=== PATIENT | female | born 1965 | race Caucasian/White ===

== ENCOUNTER → 2017-04-04 | Outpatient (CLI) | payer BC, OTHER ==
[2017-04-04 12:57] LABS: Potassium 4.7 mmol/L (3.5-5.1)
== END | disposition home or self-care (01) ==
LOC: LABPAT 12:07
PROVIDERS: ATTEND Surgery
DX: Z01.812 Encounter for preprocedural laboratory examination (principal)
CPT/HCPCS: 80051; 86850; 86900; 86901

== ENCOUNTER → 2017-04-07 | Day surgery (SDC) | payer BC, OTHER ==
[2017-04-01 10:44] VITALS: BMI 34.2
[~2017-04-07] MED LIST: BUPIVACAINE (PF) 0.5% 30 ML VIAL SQ ONE; DEXAMETHASONE SOD PHOSPHATE 10 MG/ML 1 ML VIAL IV ONE; GLYCOPYRROLATE 0.2 MG/ML 2 ML VIAL ONE; HEPARIN SODIUM,PORCINE 5,000 UNIT/ML 1 ML VIAL SQ ONE; HYDROcodone/APAP 7.5-325MG 1 EACH TAB PO ONE; LACTATED RINGERS 1,000 ML IV ONE; LACTATED RINGERS 1,000 ML IV SCH; LIDOCAINE 1% 20 ML VIAL (10MG/ML) FOR IV START INTRADERMA ONE; LIDOCAINE 1% INJ 10MG/ML (20 ML MDV) ONE; MIDAZOLAM 2 MG/2 ML VIAL IV PRN; MIDAZOLAM 2 MG/2 ML VIAL ONE; NEOSTIGMINE 1 MG/ML 10 ML VIAL ONE; ONDANSETRON 4 MG/2 ML VIAL IVP ONE; PROPOFOL 10 MG/ML 20 ML VIAL IV ONE; ROCURONIUM BROMIDE 10 MG/ML 10 ML VIAL IV ONE; SUCCINYLCHOLINE CHLORIDE 100 MG/5 ML SYR IV ONE; ceFAZolin 2 GM in SODIUM CHLORIDE 0.9% 100 ML IVPB ONE; fentaNYL (PF) 50 MCG/ML 2 ML AMP ONE
--- NOTE | 2017-04-07 11:16 | P.OP ---
Date of Procedure: 04/07/17 Preoperative Diagnosis: Ventral incisional hernia Postoperative Diagnosis: Ventral incisional hernia Procedure(s) Performed: Robotic-assisted ventral incisional hernia repair Implants: Anesthesia: BALDEMAR Surgeon: Preston Uriarte Estimated Blood Loss (ml): 1 Pathology: none sent Condition: stable Disposition: same day Indications for Procedure: Symptomatic ventral incisional hernia. Patient has had the previously radical hysterectomy and no dissection. Midline incision. Has developed a bulge at the upper end of the scar. No evidence of forearm generalized weakness of abdominal musculature. However the hernia is quite symptomatic. Did do and informed consent was obtained procedure having been explained to her including potential complication particular bleeding infection hematoma seroma recurrence pain etc. she understood and agree to proceed. Operative Findings: Ventral incisional hernia with a defect about the 20 cm in diameter. Description of Procedure: After induction of general endotracheal anesthesia the abdominal wall was prepped with Betadine and draped. A 5 mm trocar was inserted using the Optiview Method under direct vision into the peritoneal cavity in the left upper quadrant under local anesthesia. The peritoneal cavity was then inflated with carbon dioxide to pressure approximately 15 mmHg. A 12 mm trocar was placed more laterally and the 8 mm trocar inferiorly all under direct vision robot was then docked. The mesh was then inserted in the lateral port and the Prolene sutures and the attachments on either side. The defect was then closed with the running 0 Prolene locking suture. Mesh were then secured with a Prolene suture to the peritoneum. Hemostasis was good. The gauze were then removed under direct vision. CO2 evacuated. The 12 mm incision was the closed prior to removal of the trochars with the Homero Serrato needle suture. Skin incisions were closed with interrupted 4-0 Monocryl and Dermabond. There is no evidence of any other hernia defect at the time of visual exploration. The patient would discharged home to resume her home meds. [place] 7.5 one every 4-6 hours when necessary for pain. return appointment to the office in about a week. No heavy lifting or straining for 6 weeks. Soft diet. Encouraged to ambulate. Remove dressings tomorrow morning. May shower from tomorrow. Plan - Discharge Summary New Discharge Prescriptions: No Action Cholecalciferol [Vitamin D3] 5,000 unit PO DAILY Multivitamins, Thera [Multivitamin (formulary)] 1 tab PO DAILY Magnesium Malate 1 tab PO BID Ibuprofen [Motrin] 800 mg PO Q8H PRN PRN Reason: Pain Cyclobenzaprine [Flexeril] 10 mg PO HS Venlafaxine HCl [Effexor] 37.5 mg PO HS Metoprolol Tartrate [Lopressor] 12.5 mg PO BID Discharge Medication List Cholecalciferol [Vitamin D3] 5,000 unit PO DAILY 01/29/16 [History] Magnesium Malate 1 tab PO BID 01/29/16 [History] Multivitamins, Thera [Multivitamin (formulary)] 1 tab PO DAILY 01/29/16 [History ] Cyclobenzaprine [Flexeril] 10 mg PO HS 08/07/16 [History] Ibuprofen [Motrin] 800 mg PO Q8H PRN 08/07/16 [History] Metoprolol Tartrate [Lopressor] 12.5 mg PO BID 04/01/17 [History] Venlafaxine HCl [Effexor] 37.5 mg PO HS 04/01/17 [History] Follow up Appointment(s)/Referral(s): Preston Uriarte MD [STAFF PHYSICIAN] - 04/15/17 9:00 am Patient Instructions/Handouts: *Surgery [facility] - (Anesthesia) Discharge Instructions Outpatient Surgery, Ventral Hernia (DC), Ventral Hernia Repair (DC)
[2017-04-07 11:21] VITALS: TEMP 97.8
[2017-04-07] MEDS: HYDROmorphone 1 MG/ML 1 ML SYRINGE IVP PRN ×5 (11:42→12:19)
[2017-04-07 13:05] VITALS: RESP 16
[2017-04-07 14:10] VITALS: BP 131/65; PULSE 77
== END ==
LOC: OR 07:55
PROVIDERS: ATTEND Surgery
DX: K43.2 Incisional hernia without obstruction or gangrene (principal); M79.7 Fibromyalgia; M19.049 Primary osteoarthritis, unspecified hand; E78.5 Hyperlipidemia, unspecified; I10 Essential (primary) hypertension; F32.9 Major depressive disorder, single episode, unspecified; E66.9 Obesity, unspecified; Z79.899 Other long term (current) drug therapy; Z88.2 Allergy status to sulfonamides
CPT/HCPCS: 49654; S2900; 86850; 86900; 86901

== ENCOUNTER → 2017-07-01 | Outpatient (CLI) | payer BC, OTHER ==
--- NOTE | 2017-07-01 08:18 | US ---
EXAMINATION TYPE: US abdomen complete DATE OF EXAM: 07/01/2017 COMPARISON: CT CLINICAL HISTORY: R19.07 Abd/Pelvic Swelling Mass. Patient complains of lump near umbilicus. EXAM MEASUREMENTS: Liver Length: 12.9 cm Gallbladder Wall: 0.3 cm CBD: 0.5 cm Spleen: 12.4 cm Right Kidney: 10.6 x 4.0 x 4.4 cm Left Kidney: 10.7 x 4.4 x 6.1 cm Pancreas: visualized portions wnl Liver: wnl Gallbladder: No stones seen Evidence for sonographic Garcia's sign: No CBD: wnl Spleen: wnl Right Kidney: No hydronephrosis or masses seen Left Kidney: No hydronephrosis or masses seen, lower pole partially obscured by bowel Upper IVC: wnl Abd Aorta: wnl Scanned around umbilicus where pt feels lump, no definite abnormality noted, no hernia seen with willie harkins. IMPRESSION: 1. No suspicious anterior abdominal wall hernia identified. 2. Normal abdomen ultrasound
== END | disposition home or self-care (01) ==
LOC: RADUSWWP 07:36
PROVIDERS: ATTEND Family Medicine
DX: R19.07 Generalized intra-abdominal and pelvic swelling, mass and lump (principal)
CPT/HCPCS: 76700

== ENCOUNTER → 2018-01-28 | Outpatient (CLI) | payer BC, OTHER ==
[2018-01-28 12:15] LABS: ALT 17 U/L (9-52); AST 20 U/L (14-36); Albumin 4.5 g/dL (3.5-5.0); Alkaline Phosphatase 119 U/L (38-126); Anion Gap 13 mmol/L; Blood Urea Nitrogen 16 mg/dL (7-17); C Reactive Protein <5.0 mg/L (<10.0); Calcium 9.7 mg/dL (8.4-10.2); Carbon Dioxide 28 mmol/L (22-30); Chloride 105 mmol/L (98-107); Cholesterol 291 mg/dL (<200); Glucose 101 mg/dL (74-99); HDL Cholesterol 44 mg/dL (40-60); LDL Cholesterol,Calculated 205 mg/dL (0-99); Potassium 4.9 mmol/L (3.5-5.1); Sodium 146 mmol/L (137-145); Total Bilirubin 0.4 mg/dL (0.2-1.3); Total Protein 7.7 g/dL (6.3-8.2); Triglycerides 208 mg/dL (<150)
[2018-01-28 12:25] LABS: T4, Free (Free Thyroxine) 0.89 ng/dL (0.78-2.19)
[2018-01-28 16:22] LABS: Rheumatoid Factor 7 IU/mL (0-15)
[2018-01-28 16:30] LABS: Vitamin D 25 Hydroxy 26.2 ng/mL (30.0-100.0)
== END | disposition home or self-care (01) ==
LOC: LABWHC1 09:59
PROVIDERS: ATTEND Nurse Practitioner Family
DX: E78.2 Mixed hyperlipidemia (principal); E55.9 Vitamin D deficiency, unspecified; R03.0 Elevated blood-pressure reading, without diagnosis of hypertension; M79.7 Fibromyalgia
CPT/HCPCS: 36415; 80053; 80061; 82306; 82533; 84439; 84443; 85652; 86038; 86140; 86431

== ENCOUNTER → 2019-04-22 | Outpatient (CLI) | payer OTHER ==
--- NOTE | 2019-04-23 10:55 | MM ---
Reason for exam: screening (asymptomatic). History: Patient is postmenopausal. Family history of breast cancer in aunt at age 60. Physical Findings: A clinical breast exam by your physician is recommended on an annual basis and results should be correlated with mammographic findings. MG Screening Mammo w CAD Bilateral CC and MLO view(s) were taken. There are scattered fibroglandular densities. No significant changes when compared with prior studies. ASSESSMENT: Benign, BI-RAD 2 RECOMMENDATION: Routine screening mammogram of both breasts in 1 year.
== END | disposition home or self-care (01) ==
LOC: RADMAMWWP 11:43
PROVIDERS: ATTEND Family Medicine
DX: Z12.31 Encounter for screening mammogram for malignant neoplasm of breast (principal)
CPT/HCPCS: 77067

== ENCOUNTER → 2019-12-10 | Outpatient (CLI) | payer OTHER ==
[2019-12-10 15:08] LABS: Basophils % (A) 0 %; Eosinophils # (A) 0.1 k/uL (0-0.7); Eosinophils % (A) 2 %; HCT 45.1 % (34.0-46.0); HGB 14.8 gm/dL (11.4-16.0); Lymphocytes # (A) 2.1 k/uL (1.0-4.8); Lymphocytes % (A) 38 %; MCH 30.5 pg (25.0-35.0); MCHC 32.9 g/dL (31.0-37.0); MCV 92.8 fL (80.0-100.0); Mean Platelet Volume 6.9; Monocytes # (A) 0.3 k/uL (0-1.0); Monocytes % (A) 6 %; Neutrophils # (A) 2.8 k/uL (1.3-7.7); Neutrophils % (A) 51 %; Platelet Count 316 k/uL (150-450); RBC 4.86 m/uL (3.80-5.40); RDW 13.2 % (11.5-15.5); WBC 5.4 k/uL (3.8-10.6)
[2019-12-10 15:17] LABS: Albumin 4.7 g/dL (3.5-5.0); Calcium 9.6 mg/dL (8.4-10.2); Potassium 4.8 mmol/L (3.5-5.1); Total Bilirubin 0.4 mg/dL (0.2-1.3); Total Protein 7.9 g/dL (6.3-8.2)
[2019-12-10 15:32] LABS: T4, Free (Free Thyroxine) 1.01 ng/dL (0.78-2.19)
--- NOTE | 2019-12-10 17:09 | CT ---
EXAMINATION TYPE: CT chest w con DATE OF EXAM: 12/10/2019 COMPARISON: None HISTORY: chronic cough difficulty in breathing CT DLP: 443 mGycm, Automated exposure control for dose reduction was used. CONTRAST: Performed injected with 100 mL of Isovue 300. TECHNIQUE: Axial images were obtained at 5 mm thick sections. Reconstructed images are reviewed on [employer] computer in the coronal plane. FINDINGS: Portion of the thyroid visualized is normal. No suspicious lung nodules or focal infiltrates are present. No enlarged mediastinal or hilar adenopathy is evident. The ascending aorta diameter at the level o f the main pulmonary artery is 2.8 cm. The main pulmonary artery diameter at the bifurcation is 2.[address] sections are obtained through the upper abdomen. Abdomen is essentially unremarkable. The re is some vague nodularity within the lateral right breast, series 3 image 19, consider follow-up ma mmogram right breast. This may be the asymmetric density identified on 04/22/2019 IMPRESSIONS: 1. No suspicious abnormality CT chest. 2. Vague increased density within the upper outer quadrant right breast, consider diagnostic mammogra m right breast for additional evaluation, 2 views.
--- NOTE | 2019-12-11 07:47 | ECHOF ---
Referral Reason:R06.09 dyspnea MEASUREMENTS -------- HEIGHT: 180.3 cm WEIGHT: 117.0 kg BP: 142/67 RVIDd: 3.2 cm (< 3.3) IVSd: 1.2 cm (0.6 - 1.1) LVIDd: 4.7 cm (3.9 - 5.3) LVPWd: 1.3 cm (0.6 - 1.1) IVSs: 1.8 cm LVIDs: 2.7 cm LVPWs: 1.6 cm LA Diam: 3.3 cm (2.7 - 3.8) LAESV Index (A-L): 11.20 ml/m Ao Diam: 2.9 cm (2.0 - 3.7) AV Cusp: 1.8 cm (1.5 - 2.6) MV EXCURSION: 15.618 mm (> 18.000) MV EF SLOPE: 24 mm/s (70 - 150) EPSS: 0.5 cm MV E Go: 0.71 m/s MV DecT: 218 ms MV A Go: 0.64 m/s MV E/A Ratio: 1.12 TAPSE: 19.78 mm FINDINGS -------- Sinus rhythm. This was a technically adequate study. The left ventricular size is normal. There is mild concentric left ventricular hypertrophy. Overa ll left ventricular systolic function is normal with, an EF between 60 - 65 %. The right ventricle is normal in size. Normal LA size by volume 22+/-6 ml/m2. The right atrium is normal in size. Interatrial and interventricular septum intact. The aortic valve is trileaflet and appears structurally normal. The mitral valve is normal. The tricuspid valve appears structurally normal. Trace/mild (physiologic) pulmonic regurgitation. The aortic root size is normal. Normal inferior vena cava with normal inspiratory collapse consistent with estimated right atrial pre ssure of 5 mmHg. There is no pericardial effusion. CONCLUSIONS -------- 1. Sinus rhythm. 2. This was a technically adequate study. 3. The left ventricular size is normal. 4. There is mild concentric left ventricular hypertrophy. 5. Overall left ventricular systolic function is normal with, an EF between 60 - 65 %. 6. The right ventricle is normal in size. 7. Normal LA size by volume 22+/-6 ml/m2. 8. The right atrium is normal in size. 9. Interatrial and interventricular septum intact. 10. The aortic valve is trileaflet and appears structurally normal. 11. The mitral valve is normal. 12. The tricuspid valve appears structurally normal. 13. Trace/mild (physiologic) pulmonic regurgitation. 14. The aortic root size is normal. 15. Normal inferior vena cava with normal inspiratory collapse consistent with estimated right atrial pressure of 5 mmHg. 16. There is no pericardial effusion. DIRECTOR EXTERNAL COMMUNICATIONS: Leticia Sylvester RDCS
== END | disposition home or self-care (01) ==
LOC: RADCTMAIN 14:29
PROVIDERS: ATTEND Internal Medicine Critical Care Medicine
DX: I09.89 Other specified rheumatic heart diseases (principal); R00.0 Tachycardia, unspecified; R05 Cough; R06.09 Other forms of dyspnea; Z88.2 Allergy status to sulfonamides
CPT/HCPCS: 93306; 84439; 80053; 82550; 84443; 85025; 82785; 71260; 36415; Q9967

== ENCOUNTER → 2024-10-05 | Outpatient (CLI) | payer OTHER ==
--- NOTE | 2024-10-05 12:22 | XR ---
EXAMINATION TYPE: XR chest 2V DATE OF EXAM: 10/05/2024 11:35 AM COMPARISON: 12/02/2019 CLINICAL INDICATION: Female, 59 years old with history of hemoptysis, , TECHNIQUE: Frontal and lateral views FINDINGS: Heart normal size. Aorta and pulmonary vasculature within normal limits. Patchy lateral left basilar opacity. No pleural effusion. IMPRESSION: Patchy left basilar opacity. Follow-up to reassess following treatment. Underlying pneumonia not excl uded. [facility], , 10/05/2024 12:19 PM
== END | disposition home or self-care (01) ==
LOC: RADXRMAIN 11:13
PROVIDERS: ATTEND Family Medicine
DX: R04.2 Hemoptysis (principal); R91.8 Other nonspecific abnormal finding of lung field
CPT/HCPCS: 71046